=== PATIENT | male | born 1990 | race Caucasian/White ===

== ENCOUNTER 2017-02-23 03:34 | Emergency (ER) | payer OTHER ==
[~2017-02-23] VITALS: Ht 162.6 cm; Wt 55.0 kg
[2017-02-23 03:40] VITALS: BP 136/74; PULSE 106; RESP 18; TEMP 98.1; O2SAT 100
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
[2017-02-23 08:30] VITALS: BP 134/79; PULSE 76; RESP 14; O2SAT 99
[2017-02-23 15:00] VITALS: BP 116/57; PULSE 95; RESP 20; TEMP 98.8; O2SAT 98
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
--- NOTE | 2017-02-23 16:38 | PD ---
Data Data Last Documented VS Vital Signs Date Time Temp Pulse Resp B/P (MAP) Pulse Ox O2 Delivery O2 Flow Rate FiO2 02/23/17 16:44 02/23/17 15:00 98.8 95 20 98 Room Air Orders Orders Psych Screen (02/23/17 04:08) Drug Screen, Random Urine (02/23/17 04:08) Diet Regular Basic (02/23/17 Breakfast) Labs Laboratory Tests Test 02/23/17 13:50 Urine Opiates Screen NEG Urine Barbiturates Screen NEG Urine Amphetamines Screen NEG Urine Benzodiazepines Screen NEG Urine Cocaine Screen NEG Urine Cannabinoids Screen NEG MDM Medical Record Reviewed: Yes Supervised Visit with SHONDA: Yes Narrative Course Pt arrives as a Olivia Act. He has no suicidal or homicidal ideation. BA lifted by Steffi Hanks. Pt seen and evaluated by me. Pt is appropriate for discharge home. Diagnosis Primary Impression: Adjustment disorder Qualified Codes: F43.20 - Adjustment disorder, unspecified Referrals: Primary Care Physician call for appointment Med/Other Pt SpecificInfo: No Change to Meds Scripts No Active Prescriptions or Reported Meds Disposition: 01 DISCHARGE HOME Condition: Stable Chris Workman MD Feb 23, 2017 16:38
== END 2017-02-23 16:45 | disposition home or self-care (01) ==
LOC: NEPD 03:34 → NEPB 16:45
DX: F43.20 Adjustment disorder, unspecified (principal)
CPT/HCPCS: 80307; 99284